=== PATIENT | male | born 1975 | race Caucasian/White ===

== ENCOUNTER 2016-09-06 22:54 | Emergency (ER) | payer SELFPAY | END 2016-09-06 23:50 | disposition left against medical advice (07) | LOC: ED 22:54 | DX: R10.9 Unspecified abdominal pain (principal); Z53.21 Procedure and treatment not carried out due to patient leaving prior to being seen by health care provider ==

== ENCOUNTER 2018-10-18 09:33 | Outpatient (CLI) | payer BC, OTHER ==
[2018-10-18 13:03] LABS: Alanine Aminotransferase 69 units/L (7-56); Albumin 4.5 g/dL (3.9-5); Chol/HDL Ratio 5.79 %; HDL Cholesterol 43 mg/dL (40-59); LDL Cholesterol,Direct 200 mg/dL (50-130)
[2018-10-18 13:06] LABS: Bilirubin,Direct < 0.2 mg/dL (0-0.2)
== END 2018-10-18 09:34 | disposition home or self-care (01) ==
LOC: LAB 09:33
PROVIDERS: ATTEND Internal Medicine
DX: E78.5 Hyperlipidemia, unspecified (principal); E11.9 Type 2 diabetes mellitus without complications; I10 Essential (primary) hypertension; R94.5 Abnormal results of liver function studies
CPT/HCPCS: 36415; 80061; 80076; 83036

== ENCOUNTER 2019-01-31 09:30 | Outpatient (CLI) | payer OTHER ==
[2019-01-31 10:35] LABS: Alanine Aminotransferase 78 units/L (7-56); Albumin 4.5 g/dL (3.9-5); Chol/HDL Ratio 3.41 %; HDL Cholesterol 46 mg/dL (40-59); LDL Cholesterol,Direct 102 mg/dL (50-130)
[2019-01-31 10:56] LABS: Bilirubin,Direct < 0.2 mg/dL (0-0.2)
== END 2019-01-31 09:31 | disposition home or self-care (01) ==
LOC: LAB 09:30
PROVIDERS: ATTEND Internal Medicine
DX: E11.9 Type 2 diabetes mellitus without complications (principal); E78.5 Hyperlipidemia, unspecified; R94.5 Abnormal results of liver function studies
CPT/HCPCS: 36415; 80061; 80076; 83036

== ENCOUNTER 2021-12-29 10:32 | Outpatient (CLI) | payer OTHER ==
[2021-12-29 12:21] LABS: Basophils % (Auto) 0.4 % (0.0-1.8); Eosinophils # (Auto) 0.3 K/mm3 (0.0-0.4); Hematocrit 47.6 % (35.5-45.6); Lymphocytes # (Auto) 2.8 K/mm3 (1.2-5.4); Lymphocytes % (Auto) 29.7 % (13.4-35.0); Mean Corpuscular HGB Conc 34 % (32-34); Mean Corpuscular Volume 93 fl (84-94); Monocytes # (Auto) 0.8 K/mm3 (0.0-0.8); Monocytes % (Auto) 8.6 % (0.0-7.3); Platelet Count 203 K/mm3 (140-440); Red Blood Count 5.14 M/mm3 (3.65-5.03); Red Cell Distribution Width 13.6 % (13.2-15.2)
[2021-12-29 12:36] LABS: Alanine Aminotransferase 62 units/L (7-56); Albumin 4.8 g/dL (3.9-5); Blood Urea Nitrogen 17 mg/dL (9-20); Calcium 9.7 mg/dL (8.4-10.2); Chol/HDL Ratio 3.87 %; HDL Cholesterol 48 mg/dL (40-59); Hemolysis Index 19; LDL Cholesterol,Direct 114 mg/dL (50-130)
[2021-12-29 12:44] LABS: BUN/Creatinine Ratio 24
[2021-12-29 17:09] LABS: Creatinine,Urine 130.8 mg/dL (0.1-20.0); Microalbumin/Creatinine Ratio 81.8 ug/mg
[2022-01-01 12:18] LABS: Vitamin D, 25-OH, D2 <4 ng/mL
== END 2021-12-29 10:33 | disposition home or self-care (01) ==
LOC: LAB 10:32
PROVIDERS: ATTEND Internal Medicine
DX: I10 Essential (primary) hypertension (principal); E11.9 Type 2 diabetes mellitus without complications
CPT/HCPCS: 36415; 80053; 80061; 82043; 82306; 83036; 84443; 85025